=== PATIENT | female | born 1990 | race Caucasian/White ===

== ENCOUNTER 2019-06-17 22:22 | Emergency (ER) | payer BC ==
[~2019-06-17] VITALS: Ht 177.8 cm; Wt 81.6 kg
[2019-06-17 22:38] VITALS: Ht 177.8 cm; Wt 81.6 kg
[2019-06-18 00:29] VITALS: BP 121/74
== END 2019-06-18 00:29 | disposition home or self-care (01) ==
LOC: ED 22:22
DX: S83.004A Unspecified dislocation of right patella, initial encounter (principal); Z87.442 Personal history of urinary calculi; X58.XXXA Exposure to other specified factors, initial encounter; Y93.89 Activity, other specified; Y92.091 Bathroom in other non-institutional residence as the place of occurrence of the external cause; Y99.8 Other external cause status
CPT/HCPCS: J3010; J3490; Q0092